=== PATIENT | female | born 1945 | race Hispanic/Latino ===

== ENCOUNTER 2018-05-25 17:44 | Inpatient (IN) | payer MEDICARE ==
[~2018-05-25] VITALS: Ht 170.2 cm; Wt 115.9 kg
[~2018-05-25 17:44] MED LIST: AEC81 PO; ATOR10TA69 PO; BENZ-51 PO; CHOL100040 PO; DULO30CA51 PO; FAMO20TA8 PO; FURO20TA6 PO; GLIP5TAB11 PO; INSU100I24 SQ; INSU100V3 IJ; LINA5TAB PO; POTA10CA44 PO; PREG75 PO; RIVA20TA PO
[2018-05-25 18:16] LABS: MEAN CORPUSCULAR VOLUME 77.5 fL (79-99); RED CELL DISTRIBUTION WIDTH 18.9 % (11.0-15.5)
[2018-05-25 18:24] LABS: CREATININE 2.2 mg/dL (0.5-1.5); POTASSIUM 4.2 mmol/L (3.5-5.1)
[2018-05-25 18:44] LABS: BILIRUBIN,TOTAL 0.5 mg/dL (0.2-1.0); TOTAL PROTEIN, SERUM 7.5 g/dL (6.0-8.3)
[2018-05-25 18:51] LABS: B-TYPE NATRIURETIC PEPTIDE 3250 pg/mL (0-100)
[2018-05-25] MEDS ORDERED: IPRATROPIUM/ALBUTEROL SULFATE 3 ML SOLUTION IH PRN (19:15)
[2018-05-25] MEDS ORDERED: POTASSIUM CHLORIDE 20MEQ/100ML 100 ML IV PRN (19:15)
[2018-05-25] MEDS ORDERED: DEXTROSE 50%-WATER 50 ML DISP.SYRIN IV PRN (19:15)
[2018-05-25] MEDS ORDERED: ACETAMINOPHEN 325 MG TAB PO PRN ×2 (19:15)
[2018-05-25] MEDS ORDERED: ONDANSETRON HCL 4 MG/2 ML VIAL IVP PRN (19:15)
[2018-05-25] MEDS ORDERED: DiphenhydrAMINE HCL 50 MG/ML VIAL IVP PRN (19:15)
[2018-05-25] MEDS ORDERED: DIPHENHYDRAMINE HCL 25 MG CAPSULE PO PRN (19:15)
[2018-05-25] MEDS ORDERED: CLONIDINE HCL 0.1 MG TABLET PO PRN (19:15)
[2018-05-25] MEDS ORDERED: POTASSIUM CHLORIDE 10% ELIXIR 20 MEQ/15 ML UDCUP PO PRN (19:15)
[2018-05-25] MEDS ORDERED: MAG HYDROX/AL HYDROX/SIMETH ES 30 ML SUSP UDCUP PO PRN (19:15)
[2018-05-25] MEDS ORDERED: GUAIFENESIN SUGAR-FREE 100 MG/5 ML UDCUP PO PRN (19:15)
[2018-05-25] MEDS ORDERED: VANCOMYCIN PROTOCOL PER PHARMACY IV SCH (19:15)
[2018-05-25] MEDS ORDERED: LIDOCAINE HCL-MPF 1% 2ML VIAL IJ PRN (19:15)
[2018-05-25] MEDS ORDERED: SODIUM CHLORIDE 0.9% 10 ML VIAL IVP SCH (19:15)
[2018-05-25] MEDS ORDERED: LACTULOSE 20 GM/30 ML UDCUP PO PRN (19:15)
[2018-05-25] MEDS ORDERED: NITROGLYCERIN 0.4 MG SL TAB SL PRN (19:15)
[2018-05-25] MEDS ORDERED: GLUCAGON 1MG KIT 1 MG ML IM PRN (19:15)
[2018-05-25 19:20] LABS: BASOPHILS % (AUTO) 0.6 % (0.0-5.0); EOSINOPHILS % (AUTO) 0.5 % (0.0-8.0); HEMATOCRIT 31.9 % (36-48); LYMPHOCYTES % (AUTO) 30.6 % (21.0-51.0); MEAN CORPUSCULAR HEMOGLOBIN 23.7 pg (27.0-33.0); MEAN CORPUSCULAR HGB CONC 30.6 g/dL (32.0-36.0); NEUTROPHILS % (AUTO) 60.3 % (40.0-77.0); NUCLEATED RED BLOOD CELLS 0.2 % (0.0-0.19); PLATELET COUNT (AUTO) 122 K/uL (130-400); RED BLOOD CELL COUNT(AUTO) 4.12 MIL/uL (4.00-5.50); WHITE BLOOD COUNT (AUTO) 6.8 K/uL (4.8-10.8)
[2018-05-25 19:39] LABS: PLATELET MORPHOLOGY LARGE PLTS PRESENT
[2018-05-25] MEDS: FUROSEMIDE 10 MG/ML 4ML VIAL IVP SCH (20:00)
[2018-05-25] MEDS ORDERED: ZOSYN 3.375GM+NS 50ML 50 ML IV ONE (20:13)
[2018-05-25] MEDS ORDERED: FUROSEMIDE 10 MG/ML 4ML VIAL ONE (20:13)
[2018-05-25] MEDS: ZOSYN 3.375GM+NS 50ML 50 ML IV SCH (21:00)
[2018-05-25] MEDS: INSULIN R PO SSI SQ SCH (21:00)
[2018-05-25] MEDS ORDERED: ACETAMINOPHEN 325 MG TAB ONE (21:53)
[2018-05-25] MEDS ORDERED: SODIUM CHLORIDE 3% FOR INHALATION 4 ML/AMP VIAL.NEB IH ONE (22:22)
[2018-05-25] MEDS ORDERED: IPRATROPIUM/ALBUTEROL SULFATE 3 ML SOLUTION IH ONE (22:37)
[2018-05-25] MEDS ORDERED: VANCOMYCIN 1GM+NS 250ML 250 ML IV ONE (23:33)
[2018-05-26] MEDS: FUROSEMIDE 10 MG/ML 4ML VIAL IVP SCH ×3 (04:00→22:34)
[2018-05-26] MEDS ORDERED: FUROSEMIDE 10 MG/ML 4ML VIAL ONE ×2 (04:23→14:49)
[2018-05-26] MEDS: ZOSYN 3.375GM+NS 50ML 50 ML IV SCH ×3 (05:00→22:34)
[2018-05-26] MEDS: INSULIN R PO SSI SQ SCH ×4 (07:30→21:00)
[2018-05-26] MEDS ORDERED: ZOSYN 3.375GM+NS 50ML 50 ML IV ONE (08:40)
[2018-05-26] MEDS: FAMOTIDINE 20MG TAB 20 MG TAB PO SCH (09:00)
[2018-05-26] MEDS ORDERED: DOCUSATE SODIUM 100 MG CAP PO PRN (09:15)
--- NOTE | 2018-05-26 11:09 | NUR ---
VERY HARD OF HEARING. USES BILATERAL HEARING AIDES BUT LOST BOTH AT [facility] WHEN WAS THERE Addendum: 05/26/18 at 1113 by MARTHA GALLEGO RN RN Amended: Links added.
--- NOTE | 2018-05-26 11:18 | NUR ---
WITH SISTER Addendum: 05/26/18 at 1122 by MARTHA GALLEGO RN RN Amended: Links added.
[2018-05-26] MEDS ORDERED: CHOL100018 PO (11:29)
[2018-05-26] MEDS ORDERED: NITR0.4T50 SL (11:29)
[2018-05-26] MEDS ORDERED: LINA5TAB PO (11:29)
[2018-05-26] MEDS ORDERED: CLON0.1T PO (11:29)
[2018-05-26] MEDS ORDERED: INSU100V37 SQ (11:29)
[2018-05-26] MEDS ORDERED: RIVA20TA PO (11:29)
[2018-05-26] MEDS ORDERED: SODIUM CHLORIDE 3% FOR INHALATION 4 ML/AMP VIAL.NEB IH ONE (12:24)
--- NOTE | 2018-05-26 12:30 | NUR ---
[facility] met with pt and sister Hue Clark [phone]. Pt lives with sister, has provider 30hrs thru [facility], 10hrs respite thru [place], Pt has w/[facility], O2 thru [facility]. Pt also has HH thru [facility]. Plan is to dc home with sister and current services. CM to follow and assist as needed Addendum: 05/26/18 at 1233 by DELIA WYLIE Amended: Links added.
[2018-05-26 12:37] LABS: APPEARANCE,URINE Clear (CLEAR); BILIRUBIN,URINE Negative (NEGATIVE); COLOR,URINE Yellow (YELLOW); GLUCOSE, URINE (UA) Negative (NEGATIVE); KETONES,URINE Negative (NEGATIVE); LEUKOCYTE ESTERASE ,URINE Moderate (NEGATIVE); NITRATE,URINE Negative (NEGATIVE); OCCULT BLOOD,URINE Moderate (NEGATIVE); PROTEIN,URINE POS 1+ mg/dL (NEGATIVE); UROBILINOGEN,URINE 0.2 mg/dL (0.2-1.0)
--- NOTE | 2018-05-26 12:45 | NUR ---
[facility] Letter Letter given to patient. CD
[2018-05-26 12:53] LABS: BACTERIA,URINE Rare /HPF (None Seen); SQUAMOUS EPITHELIAL CELL,UR Rare /HPF (0-2)
[2018-05-26 12:54] LABS: TRANSITIONAL EPI CELLS,URINE Rare /HPF (None Seen); YEAST,URINE BUDDING Few /HPF (None Seen)
[2018-05-26] MEDS: PHARMACY COMMUNICATION MISC SCH ×4 (15:00→22:45)
[2018-05-26 16:00] VITALS: BP 138/74
[2018-05-26 20:00] VITALS: BP 154/75
[2018-05-26 22:19] VITALS: BP 154/75
[2018-05-27] VITALS (7 sets, daily range): BP systolic 106–134; BP diastolic 51–75
[2018-05-27] MEDS: PHARMACY COMMUNICATION MISC SCH ×6 (01:00→23:00)
[2018-05-27] MEDS: FUROSEMIDE 10 MG/ML 4ML VIAL IVP SCH ×3 (05:02→21:41)
[2018-05-27] MEDS: ZOSYN 3.375GM+NS 50ML 50 ML IV SCH ×3 (05:02→21:37)
[2018-05-27 05:22] LABS: HEMATOCRIT 31.6 % (36-48); MEAN CORPUSCULAR HEMOGLOBIN 23.9 pg (27.0-33.0); MEAN CORPUSCULAR HGB CONC 30.3 g/dL (32.0-36.0); MEAN CORPUSCULAR VOLUME 78.7 fL (79-99); NUCLEATED RED BLOOD CELLS 0.2 % (0.0-0.19); PLATELET COUNT (AUTO) 112 K/uL (130-400); RED BLOOD CELL COUNT(AUTO) 4.01 MIL/uL (4.00-5.50); WHITE BLOOD COUNT (AUTO) 6.9 K/uL (4.8-10.8)
[2018-05-27 05:39] LABS: POTASSIUM 3.8 mmol/L (3.5-5.1)
[2018-05-27] MEDS: INSULIN R PO SSI SQ SCH ×4 (07:30→21:43)
[2018-05-27] MEDS: FAMOTIDINE 20MG TAB 20 MG TAB PO SCH (10:31)
[2018-05-27] MEDS: VANCOMYCIN 500MG+NS 100ML 100 ML IV SCH ×2 (10:35→21:36)
[2018-05-27] MEDS: POTASSIUM CHLORIDE 20 MEQ ERTAB PO PRN ×2 (16:03→18:19)
--- NOTE | 2018-05-27 16:14 | NUR ---
[facility] consult Patient assessed as ordered. Patient states she had a boil on right buttock which was drained approximately one week ago. Site is nearly healed. No other open areas identified. [facility] recommendation submitted. Addendum: 05/27/18 at 1616 by REAGAN ALMENDAREZ RN/ Amended: Links added.
[2018-05-27] MEDS ORDERED: VANCOMYCIN 1GM+NS 250ML 250 ML IV ONE (20:00)
[2018-05-28] MEDS: ZOLPIDEM TARTRATE 5 MG TAB PO PRN ×2 (00:34→22:08)
[2018-05-28 03:34] VITALS: BP 116/49
[2018-05-28] MEDS: FUROSEMIDE 10 MG/ML 4ML VIAL IVP SCH ×3 (05:20→21:05)
[2018-05-28] MEDS: ZOSYN 3.375GM+NS 50ML 50 ML IV SCH ×3 (05:21→23:25)
[2018-05-28] MEDS: INSULIN R PO SSI SQ SCH ×4 (05:33→21:04)
[2018-05-28 05:35] LABS: HEMATOCRIT 31.9 % (36-48); MEAN CORPUSCULAR HEMOGLOBIN 23.5 pg (27.0-33.0); MEAN CORPUSCULAR VOLUME 78.2 fL (79-99); NUCLEATED RED BLOOD CELLS 0.1 % (0.0-0.19); PLATELET COUNT (AUTO) 111 K/uL (130-400); RED BLOOD CELL COUNT(AUTO) 4.08 MIL/uL (4.00-5.50); RED CELL DISTRIBUTION WIDTH 19.1 % (11.0-15.5)
[2018-05-28 05:47] LABS: ALBUMIN 2.8 g/dL (3.5-5.0); BILIRUBIN,TOTAL 0.6 mg/dL (0.2-1.0); CREATININE 2.2 mg/dL (0.5-1.5); POTASSIUM 3.5 mmol/L (3.5-5.1); TOTAL PROTEIN, SERUM 6.9 g/dL (6.0-8.3)
[2018-05-28] MEDS: VANCOMYCIN 500MG+NS 100ML 100 ML IV SCH ×2 (06:49→21:05)
[2018-05-28 08:00] VITALS: BP 119/77
[2018-05-28] MEDS: FAMOTIDINE 20MG TAB 20 MG TAB PO SCH ×2 (08:39→09:56)
[2018-05-28 11:00] VITALS: BP 118/67
--- NOTE | 2018-05-28 12:35 | NUR ---
DYSPHAGIA EVAL COMPLETED. -S/S OF ASPIRATION. RECOMMEND MECHANICAL SOFT/CHOPPED, THIN LIQUIDS; PILLS WHOLE WITH LIQUIDS. PATIENT INFORMATION: Pt IS A 72 YEAR OLD FEMALE REFERRED FOR A BEDSIDE DYSPHAGIA EVALUATION SECONDARY TO DIFFICULTY SWALLOWING. Pt'S SISTER AT BEDSIDE AT THE TIME OF THE EVALUATION. Pt REPORTS THAT SHE HAS A GLOBUS SENSATIONS WHEN SHE SWALLOWS. Pt CURRENTLY ADMITTED SECONDARY TO SHORTNESS OF BREATH. PT WAS RECENTLY IN A LOCAL SNF SECONDARY TO PNEUMONIA AND CHF. Pt HAS A PAST MEDICAL HISTORY SIGNIFICANT FOR CHF, CHRONIC KIDNEY DISEASE, HYPERTENSION, HYPERLIPIDEMIA, DM, DEEP VEIN THROMBOSIS, COLOSTOMY PLACEMENT, CABG, HYSTERECTOMY. EVALUATION: Pt PRESENTS WITH MILD OROPHARYNGEAL DYSPHAGIA CAUSED BY DECREASED ORAL MOTOR COORDINATION AND STRENGTH, AND MILD PHARYNGEAL RESPONSE DELAY EVIDENCED BY ANTERIOR SPILLAGE, DECREASED ROTARY MOTION DURING MASTICATION, WITH NO OVERT S/S OF ASPIRATION OF SUPER COUGH OR THROAT CLEAR. RECOMMENDATIONS: 1. MECHANICAL SOFT/CHOPPED, THIN LIQUIDS; PILLS WHOLE WITH LIQUIDS 2. COMPENSATORY STRATEGIES: *SEATED AT 90 *SLOW RATE *ADD GRAVY TO MEATS G-CODES SWALLOWING: [id number] Addendum: 05/28/18 at 1245 by DANIELA YUAN [facility] Amended: Links added.
[2018-05-28 16:00] VITALS: BP 123/71
--- NOTE | 2018-05-28 16:28 | NUR ---
CM Note: [place] pending acceptance CM met with pt discussed MD recommendations, pt and fam agreeable, MARYELLEN signed for [facility]. As per family does not want patient to go to [facility], only wants [place], requested for private room if possible as pt is deaf and have a tendency to have TV on loud. Informed pt and family will inform [facility] frandy of request but cannot guarantee, verbalized understanding. Faxed clinicals and pasrr. Spoke to Isabella Morris, will come eval pt, made aware of request for private room, will try to accommodate pt and fam request. Pt pending acceptance. Primary nurse aware. CM to cont to follow up.
[2018-05-28 19:15] VITALS: BP 114/68
[2018-05-28 23:17] VITALS: BP 108/52
[2018-05-29 03:46] VITALS: BP 101/43
[2018-05-29 04:40] LABS: MEAN CORPUSCULAR HEMOGLOBIN 23.8 pg (27.0-33.0); MEAN CORPUSCULAR HGB CONC 30.7 g/dL (32.0-36.0); MEAN CORPUSCULAR VOLUME 77.5 fL (79-99); NUCLEATED RED BLOOD CELLS 0.1 % (0.0-0.19); PLATELET COUNT (AUTO) 91 K/uL (130-400); RED CELL DISTRIBUTION WIDTH 19.3 % (11.0-15.5); WHITE BLOOD COUNT (AUTO) 7.1 K/uL (4.8-10.8)
[2018-05-29 04:52] LABS: CREATININE 2.1 mg/dL (0.5-1.5); POTASSIUM 3.6 mmol/L (3.5-5.1)
[2018-05-29] MEDS: ZOSYN 3.375GM+NS 50ML 50 ML IV SCH ×2 (06:15→18:25)
[2018-05-29] MEDS: VANCOMYCIN 500MG+NS 100ML 100 ML IV SCH ×3 (06:15→18:25)
[2018-05-29] MEDS: FUROSEMIDE 10 MG/ML 4ML VIAL IVP SCH ×2 (06:15→17:15)
[2018-05-29] MEDS: INSULIN R PO SSI SQ SCH ×3 (06:16→17:23)
[2018-05-29 07:30] VITALS: BP 101/47
--- NOTE | 2018-05-29 10:27 | NUR ---
CM Note: [facility] acceptance Spoke to Annabel jara/[facility], pt has acceptance. EMS arranged and faxed for today, primary nurse to call [facility] once pt ready to dc. Primary nurse aware. CM to cont to follow up.
[2018-05-29 11:00] VITALS: BP 131/97
[2018-05-29] MEDS: FAMOTIDINE 20MG TAB 20 MG TAB PO SCH (11:00)
[2018-05-29 16:00] VITALS: BP 127/64
[2018-05-29] MEDS ORDERED: ATORVASTATIN CALCIUM 10 MG TABLET PO SCH (21:00)
[2018-05-29] MEDS ORDERED: PREGABALIN 75 MG CAPSULE PO SCH (21:00)
--- NOTE | 2018-05-29 21:15 | NUR ---
DISCHARGE NOTE: Pt fully awake and responsive. Discharge instructions was given by the day shift nurse. D/C with Colostomy bag to [facility], with Guido Cath 16 samoan and IV site to left forearm # 22 gauge -patent and intact. Telemetry removed. Pt. discharged per stretcher via EMS to [facility] facility. Distress / discomfort not noted.
[2018-05-30] MEDS ORDERED: RIVAROXABAN 20 MG TABLET PO SCH (09:00)
[2018-05-30] MEDS ORDERED: DULOXETINE HCL 30 MG CAP PO SCH (09:00)
[2018-05-30] MEDS ORDERED: HOME MEDICATION 1 EACH SQ SCH (09:00)
[2018-05-30] MEDS ORDERED: ASPIRIN 81 MG EC TAB PO SCH (09:00)
[2018-05-30] MEDS ORDERED: POTASSIUM CHLORIDE 10 MEQ/TAB.SA PO SCH (09:00)
== END 2018-05-29 21:15 | DRG 291 ==
LOC: EDH 17:44 → EDHIP 21:10 → 4CH 05-26 14:06
PROVIDERS: ADMIT Family Medicine; ATTEND Family Medicine
DX: I13.0 Hypertensive heart and chronic kidney disease with heart failure and stage 1 through stage 4 chronic kidney disease, or unspecified chronic kidney disease (principal); J18.9 Pneumonia, unspecified organism; I50.9 Heart failure, unspecified; N18.9 Chronic kidney disease, unspecified; E11.22 Type 2 diabetes mellitus with diabetic chronic kidney disease; I25.10 Atherosclerotic heart disease of native coronary artery without angina pectoris; E78.5 Hyperlipidemia, unspecified; Z86.718 Personal history of other venous thrombosis and embolism; Z90.710 Acquired absence of both cervix and uterus; Z93.3 Colostomy status; Z95.1 Presence of aortocoronary bypass graft
CPT/HCPCS: 36415; 71045; 80048; 80053; 80202; 81001; 82948; 83880; 85025; 85027; 87040; 87071; 87205; 92610; 94640; 94664; 97039; A5073; G0378; J1815; J1940; J2543; J3370

== ENCOUNTER 2018-05-30 20:08 | Inpatient (IN) | payer MEDICARE ==
[~2018-05-30] VITALS: Ht 170.2 cm; Wt 108.0 kg
[~2018-05-30 20:08] MED LIST changes: -BENZ-51 PO; +CHOL100018 PO; -CHOL100040 PO; +CLON0.1T PO; -INSU100I24 SQ; +INSU100V37 SQ; +NITR0.4T50 SL
[2018-05-30 21:04] LABS: BILIRUBIN,URINE SMALL (NEGATIVE); COLOR,URINE YELLOW (YELLOW); GLUCOSE, URINE (UA) NEGATIVE (NEGATIVE); KETONES,URINE 5 mg/dL (NEGATIVE); LEUKOCYTE ESTERASE ,URINE TRACE (NEGATIVE); NITRATE,URINE NEGATIVE (NEGATIVE); OCCULT BLOOD,URINE MODERATE (NEGATIVE); PH,URINE 5.5 (5.0-8.0); PROTEIN,URINE 100 mg/dL (NEGATIVE)
[2018-05-30 21:05] LABS: APPEARANCE,URINE HAZY (CLEAR)
[2018-05-30 21:06] LABS: BACTERIA,URINE Few /HPF (None Seen); RBC,URINE 0-1 /HPF (0-1); SQUAMOUS EPITHELIAL CELL,UR None Seen /HPF (0-2); WBC,URINE 0-1 /HPF (0-1)
[2018-05-30 21:07] LABS: AMORPHOUS SEDIMENT,UR Few /LPF (None Seen)
[2018-05-30 21:20] LABS: BASOPHILS % (AUTO) 1.2 % (0.0-5.0); EOSINOPHILS % (AUTO) 0.2 % (0.0-8.0); HEMATOCRIT 32.2 % (36-48); LYMPHOCYTES % (AUTO) 4.9 % (21.0-51.0); MEAN CORPUSCULAR HEMOGLOBIN 23.5 pg (27.0-33.0); MEAN CORPUSCULAR HGB CONC 30.2 g/dL (32.0-36.0); MEAN CORPUSCULAR VOLUME 77.8 fL (79-99); NEUTROPHILS % (AUTO) 81.7 % (40.0-77.0); NUCLEATED RED BLOOD CELLS 1.1 % (0.0-0.19); PLATELET COUNT (AUTO) 108 K/uL (130-400); RED BLOOD CELL COUNT(AUTO) 4.14 MIL/uL (4.00-5.50); RED CELL DISTRIBUTION WIDTH 19.6 % (11.0-15.5); WHITE BLOOD COUNT (AUTO) 7.6 K/uL (4.8-10.8)
[2018-05-30 21:29] LABS: CARBON DIOXIDE 40 mmol/L (21-32); CHLORIDE 102 mmol/L (101-111); CREATININE 2.5 mg/dL (0.5-1.5); GLOMERULAR FILTR. RATE CALC 20 mL/min (>60); GLUCOSE,RANDOM 205 mg/dL (70-105); POTASSIUM 4.1 mmol/L (3.5-5.1); SODIUM SERUM 146 mmol/L (136-145); UREA NITROGEN, BLOOD 70 mg/dL (7-18)
[2018-05-30 21:30] LABS: INR 1.05 (0.85-1.15); PARTIAL THROMBOPLASTIN TIME 29.8 SEC (26.3-35.5)
[2018-05-30 21:39] LABS: ALANINE AMINOTRANSFERASE 22 U/L (12-78); ASPARTATE AMINOTRANSFERASE 26 U/L (10-37); BILIRUBIN,TOTAL 0.7 mg/dL (0.2-1.0); MYOGLOBIN 90 ng/mL (10-92); TOTAL PROTEIN, SERUM 7.4 g/dL (6.0-8.3); TROPONIN I < 0.04 ng/mL (0.00-0.06)
[2018-05-30] MEDS ORDERED: IPRATROPIUM/ALBUTEROL SULFATE 3 ML SOLUTION IH ONE (21:55)
[2018-05-30 21:56] LABS: CREATINE KINASE, TOTAL 18 U/L (21-232)
[2018-05-30 22:27] LABS: ABG BASE EXCESS 6.6 mmol/L (-2.0-3.0); ABG HCO3 36.6 mmol/L (21.0-28.0); ABG OXYGEN SATURATION 96.9 % (95.0-99.0); ABG PCO2 79 mmHg (32-45)
[2018-05-30] MEDS ORDERED: FUROSEMIDE 10 MG/ML 4ML VIAL ONE (23:20)
[2018-05-30] MEDS ORDERED: FUROSEMIDE 10 MG/ML 2ML VIAL ONE (23:20)
[2018-05-30 23:51] LABS: ABG BASE EXCESS 7.6 mmol/L (-2.0-3.0); ABG HCO3 36.3 mmol/L (21.0-28.0); ABG OXYGEN SATURATION 91.2 % (95.0-99.0); ABG PCO2 70 mmHg (32-45)
[2018-05-31] VITALS (24 sets, daily range): BP systolic 103–156; BP diastolic 49–107
[2018-05-31] MEDS ORDERED: GUAIFENESIN SUGAR-FREE 100 MG/5 ML UDCUP PO PRN (00:30)
[2018-05-31] MEDS ORDERED: DIPHENHYDRAMINE HCL 25 MG CAPSULE PO PRN (00:30)
[2018-05-31] MEDS ORDERED: ONDANSETRON HCL 4 MG/2 ML VIAL IVP PRN (00:30)
[2018-05-31] MEDS ORDERED: NITROGLYCERIN 0.4 MG SL TAB SL PRN (00:30)
[2018-05-31] MEDS ORDERED: DEXTROSE 50%-WATER 50 ML DISP.SYRIN IV PRN (00:30)
[2018-05-31] MEDS ORDERED: GUAIFENESIN-DM 200/20 MG 10 ML PO PRN (00:30)
[2018-05-31] MEDS ORDERED: ACETAMINOPHEN 325 MG TAB PO PRN (00:30)
[2018-05-31] MEDS ORDERED: GLUCAGON 1MG KIT 1 MG ML IM PRN (00:30)
[2018-05-31] MEDS ORDERED: CLONIDINE HCL 0.1 MG TABLET PO PRN (00:30)
[2018-05-31] MEDS ORDERED: ZOLPIDEM TARTRATE 5 MG TAB PO PRN (00:30)
[2018-05-31] MEDS ORDERED: MAG HYDROX/AL HYDROX/SIMETH ES 30 ML SUSP UDCUP PO PRN (00:30)
[2018-05-31] MEDS ORDERED: LACTULOSE 20 GM/30 ML UDCUP PO PRN (00:30)
[2018-05-31] MEDS ORDERED: SODIUM CHLORIDE 0.9% 10 ML VIAL IVP SCH (00:30)
[2018-05-31] MEDS ORDERED: VANCOMYCIN PROTOCOL PER PHARMACY IV SCH (00:30)
[2018-05-31] MEDS ORDERED: DiphenhydrAMINE HCL 50 MG/ML VIAL IVP PRN (00:30)
[2018-05-31] MEDS ORDERED: ZOSYN 3.375GM+NS 50ML 50 ML IV ONE (00:41)
[2018-05-31] MEDS ORDERED: VANCOMYCIN 1GM+NS 250ML 250 ML IV ONE (00:41)
[2018-05-31] MEDS ORDERED: ZOSYN 3.375GM+NS 50ML 50 ML IV SCH (01:00)
[2018-05-31] MEDS ORDERED: FAMO20TA8 PO (02:21)
[2018-05-31] MEDS ORDERED: VANC500V5 IV (02:21)
[2018-05-31] MEDS ORDERED: PIPE3.376 IV (02:21)
[2018-05-31] MEDS ORDERED: FURO10VI4 IV (02:21)
[2018-05-31 03:47] LABS: HEMATOCRIT 30.6 % (36-48); MEAN CORPUSCULAR HEMOGLOBIN 23.5 pg (27.0-33.0); MEAN CORPUSCULAR HGB CONC 30.2 g/dL (32.0-36.0); PLATELET COUNT (AUTO) 80 K/uL (130-400); RED BLOOD CELL COUNT(AUTO) 3.93 MIL/uL (4.00-5.50); RED CELL DISTRIBUTION WIDTH 19.5 % (11.0-15.5); WHITE BLOOD COUNT (AUTO) 6.3 K/uL (4.8-10.8)
[2018-05-31 04:05] LABS: ALBUMIN 2.7 g/dL (3.5-5.0); BILIRUBIN,TOTAL 0.8 mg/dL (0.2-1.0); CREATININE 2.5 mg/dL (0.5-1.5); POTASSIUM 4.1 mmol/L (3.5-5.1); TOTAL PROTEIN, SERUM 6.6 g/dL (6.0-8.3)
[2018-05-31] MEDS: FUROSEMIDE 10 MG/ML 4ML VIAL IVP SCH ×3 (05:05→22:13)
[2018-05-31] MEDS: INSULIN R PO SS1 SQ SCH ×4 (06:05→21:00)
[2018-05-31] MEDS: IPRATROPIUM/ALBUTEROL SULFATE 3 ML SOLUTION IH SCH ×5 (06:26→23:08)
[2018-05-31] MEDS: ZOSYN 3.375GM+NS 50ML 50 ML IV SCH ×2 (09:48→20:49)
[2018-05-31] MEDS ORDERED: POTASSIUM CHLORIDE 10% ELIXIR 20 MEQ/15 ML UDCUP PO PRN (12:45)
[2018-05-31] MEDS ORDERED: POTASSIUM CHLORIDE 20 MEQ ERTAB PO PRN (12:45)
[2018-05-31] MEDS ORDERED: POTASSIUM CHLORIDE 20MEQ/100ML 100 ML IV PRN (12:45)
[2018-05-31] MEDS ORDERED: LIDOCAINE HCL-MPF 1% 2ML VIAL IVP PRN (12:45)
--- NOTE | 2018-05-31 16:00 | NUR ---
cm note pt currently on bipap machine, no familiy at bedside. unable to interview, will followoup when family available.
[2018-05-31] MEDS ORDERED: SODIUM CHLORIDE 0.9% 250 ML IV ONE (18:07)
[2018-05-31 18:20] LABS: APPEARANCE BODY FLUID CLOUDY (CLEAR); COLOR,BODY FLUID ORANGE (LT YELLOW); SPECIMENTYPE,BODY FLUID PLEURAL; TOTAL VOLUME,BODY FLUID 50 mL
[2018-05-31 18:21] LABS: BODY FLUID RBC 3050 /cu. mm.; BODY FLUID WBC 84 /cu. mm.
[2018-05-31 18:59] LABS: BF LYMPHOCYTE 29 %; BF MONOCYTE 5 %; BF OTHER CELLS 26
--- NOTE | 2018-05-31 19:43 | NUR ---
ASSESSMENT: REPORT RECEIVED FROM MEE BROWN. PATIENT RESTING IN BED WITH SISTERS PRESENT. PATIENT AAOX 1, WEAK X 4, TYRA 3 MM EQUAL. LUNGS CLEAR , BIPAP 18/4 40 %, ABDOMEN SOFT , COLOSTOMY INTACT, PEDAL PULSES WEAK , PEDAL PULSES WEAK, SEDS ON, ROSENBERG PATENT TO BSD. ++ 4 GENERALIZED EDEMA, CALL KAN IN REACH.
[2018-05-31] MEDS: CARVEDILOL 3.125 MG TABLET PO SCH (20:48)
[2018-05-31] MEDS: ATORVASTATIN CALCIUM 40 MG TABLET PO SCH (20:48)
[2018-05-31] MEDS: VANCOMYCIN 1GM+NS 250ML 250 ML IV SCH (20:49)
[2018-05-31] MEDS: ACETAMINOPHEN 325 MG TAB PO PRN (20:53)
--- NOTE | 2018-05-31 21:24 | NUR ---
RENAL AND BLE US IN PROGRESS AT BEDSIDE
--- NOTE | 2018-05-31 21:41 | NUR ---
BILATERAL LE US COMPLETED. RENAL US PENDING.
--- NOTE | 2018-05-31 23:07 | NUR ---
RENAL US COMPLETED AT BEDSIDE. PATIENT REPOSITIONED FOR COMFORT. PATIENT CALM , SISTER AT BEDSIDE.
[2018-06-01] VITALS (24 sets, daily range): BP systolic 98–136; BP diastolic 38–77
[2018-06-01] MEDS: IPRATROPIUM/ALBUTEROL SULFATE 3 ML SOLUTION IH SCH ×6 (01:47→22:29)
[2018-06-01 03:37] LABS: HEMATOCRIT 28.3 % (36-48); MEAN CORPUSCULAR HEMOGLOBIN 23.7 pg (27.0-33.0); MEAN CORPUSCULAR VOLUME 76.5 fL (79-99); NUCLEATED RED BLOOD CELLS 0.5 % (0.0-0.19); PLATELET COUNT (AUTO) 88 K/uL (130-400); RED CELL DISTRIBUTION WIDTH 19.6 % (11.0-15.5); WHITE BLOOD COUNT (AUTO) 6.9 K/uL (4.8-10.8)
[2018-06-01 03:53] LABS: LYMPHOCYTES % (MANUAL) 12 % (22-44); MAN.DIFF COMMENT-IMPRESSION MANUAL DIFFERENTIAL; MONOCYTES % (MANUAL) 2 % (2-9); PLATELET MORPHOLOGY COMMENT DECREASED; SEGMENTED NEUTROPHILS % 86 % (40-70)
[2018-06-01 03:57] LABS: CREATININE 2.5 mg/dL (0.5-1.5); PHOSPHORUS 4.1 mg/dL (2.5-4.9); THYROID STIMULATING HORMONE 1.77 uIU/mL (0.36-3.74); URIC ACID 9.1 mg/dL (2.6-7.2)
[2018-06-01 04:09] LABS: % IRON SATURATION 5.4 % (22-44)
[2018-06-01] MEDS: FUROSEMIDE 10 MG/ML 4ML VIAL IVP SCH (06:32)
[2018-06-01] MEDS: INSULIN R PO SS1 SQ SCH ×4 (06:35→21:00)
[2018-06-01 07:54] LABS: ABG BASE EXCESS 11.9 mmol/L (-2.0-3.0); ABG HCO3 39.6 mmol/L (21.0-28.0); ABG OXYGEN SATURATION 99.1 % (95.0-99.0); ABG PCO2 64 mmHg (32-45)
[2018-06-01] MEDS: FUROSEMIDE 10 MG/ML 4ML VIAL IV SCH ×2 (08:50→16:20)
[2018-06-01] MEDS: ZOSYN 3.375GM+NS 50ML 50 ML IV SCH ×2 (08:51→21:29)
[2018-06-01] MEDS: CARVEDILOL 3.125 MG TABLET PO SCH ×2 (08:51→21:30)
[2018-06-01] MEDS: ASPIRIN 81MG TAB.CHEW PO SCH (08:51)
[2018-06-01] MEDS: ISOSORBIDE MONO 30MG TAB SR PO SCH (08:51)
[2018-06-01] MEDS: METOLAZONE 2.5 MG TABLET PO SCH ×2 (08:51→21:30)
[2018-06-01] MEDS: THIAMINE HCL 100 MG/ML 2ML VIAL IVP SCH (08:51)
[2018-06-01] MEDS: ENOXAPARIN SODIUM 30 MG/0.3 ML SQ SCH (08:52)
[2018-06-01] MEDS: HYDRALAZINE HCL 10 MG TABLET PO SCH ×3 (09:00→21:29)
[2018-06-01] MEDS ORDERED: FUROSEMIDE 10 MG/ML 4ML VIAL IVP SCH (09:00)
--- NOTE | 2018-06-01 13:53 | NUR ---
DC PLAN VISITED WITH PATIENT. PATIENT LIVES WITH SISTER. PROVIDER 30 HRS THROUGH [facility], 10 HOURS RESPITE THROUGH , [facility], [facility], HOME. PATIENT HAD BEEN TRANSFERRED TO [facility] HAD SOB BROUGHT BACK. DAUGHTER DID NOT WANT TO SIGN MARYELLEN YET SAID WANTED TO WAIT FOR OTHER SISTER LENKA MADDEN. Addendum: 06/01/18 at 1355 by JAMES TAMEZ RN CM Amended: Links added.
[2018-06-01] MEDS: VANCOMYCIN 1GM+NS 250ML 250 ML IV SCH (20:21)
[2018-06-01] MEDS: ATORVASTATIN CALCIUM 40 MG TABLET PO SCH (21:30)
[2018-06-02] VITALS (23 sets, daily range): BP systolic 104–142; BP diastolic 37–86
[2018-06-02] MEDS: FUROSEMIDE 10 MG/ML 4ML VIAL IV SCH ×3 (00:06→16:18)
[2018-06-02] MEDS: IPRATROPIUM/ALBUTEROL SULFATE 3 ML SOLUTION IH SCH ×6 (02:24→21:32)
[2018-06-02 04:22] LABS: CREATININE 2.7 mg/dL (0.5-1.5); MAGNESIUM 2.1 mg/dL (1.80-2.40); PHOSPHORUS 4.6 mg/dL (2.5-4.9); POTASSIUM 3.6 mmol/L (3.5-5.1)
[2018-06-02 04:33] LABS: MEAN CORPUSCULAR HEMOGLOBIN 23.5 pg (27.0-33.0); MEAN CORPUSCULAR HGB CONC 30.9 g/dL (32.0-36.0); NUCLEATED RED BLOOD CELLS 0.2 % (0.0-0.19); PLATELET COUNT (AUTO) 73 K/uL (130-400); RED BLOOD CELL COUNT(AUTO) 3.69 MIL/uL (4.00-5.50); RED CELL DISTRIBUTION WIDTH 19.4 % (11.0-15.5); WHITE BLOOD COUNT (AUTO) 6.5 K/uL (4.8-10.8)
[2018-06-02] MEDS: INSULIN R PO SS1 SQ SCH ×4 (05:23→21:13)
[2018-06-02 05:29] LABS: ABG BASE EXCESS 9.7 mmol/L (-2.0-3.0); ABG HCO3 36.7 mmol/L (21.0-28.0); ABG OXYGEN SATURATION 96.5 % (95.0-99.0); ABG PCO2 59 mmHg (32-45)
--- NOTE | 2018-06-02 07:30 | NUR ---
DR. WARD IN TO SEE PT. PLAN OF CARE DISCUSSED. NEW ORDERS RECEIVED AND NOTED.
[2018-06-02] MEDS: ZOSYN 3.375GM+NS 50ML 50 ML IV SCH ×2 (08:09→21:15)
[2018-06-02] MEDS: ENOXAPARIN SODIUM 30 MG/0.3 ML SQ SCH (08:09)
[2018-06-02] MEDS: DOBUTAMINE 250MG/D5 250ML 250 ML IV PRN ×2 (08:09→17:47)
[2018-06-02] MEDS: ISOSORBIDE MONO 30MG TAB SR PO SCH (08:10)
[2018-06-02] MEDS: METOLAZONE 2.5 MG TABLET PO SCH ×2 (08:10→21:14)
[2018-06-02] MEDS: ASPIRIN 81MG TAB.CHEW PO SCH (08:10)
[2018-06-02] MEDS: CARVEDILOL 3.125 MG TABLET PO SCH ×2 (08:11→21:15)
[2018-06-02] MEDS: HYDRALAZINE HCL 10 MG TABLET PO SCH ×3 (08:14→21:15)
[2018-06-02] MEDS: THIAMINE HCL 100 MG/ML 2ML VIAL IVP SCH (08:14)
--- NOTE | 2018-06-02 08:30 | NUR ---
DR. DE LUNA IN TO SEE PT. PLAN OF CARE DISCUSSED. PT PLACED ON BIPAP ORDERED. TOLERATING WELL. CONTINUE TO MONITOR PT.
[2018-06-02 10:39] LABS: ABG BASE EXCESS 10.8 mmol/L (-2.0-3.0); ABG HCO3 37.1 mmol/L (21.0-28.0); ABG OXYGEN SATURATION 96.9 % (95.0-99.0); ABG PCO2 55 mmHg (32-45)
[2018-06-02 11:52] LABS: INR 1.11 (0.85-1.15); PROTHROMBIN TIME 11.6 SEC (9.6-11.6)
[2018-06-02] MEDS ORDERED: COMPOUND IV MISC 1 EACH IVSOLN MISC PRN (12:30)
--- NOTE | 2018-06-02 14:40 | NUR ---
Nutrition intervention: Nutrition notification as per protocol. Pt admitted for respiratory failure, currently on CCD 75gm diet, 1000ml fluid restriction with good oral intake. At time of RD visit, pt in PICC line procedure. RD spoke to pt's Nurse. Nurse Johanna reports no nutritional concerns at the moment as pt with good oral intake. Recommendations: Modify current diet therapy with renal non dialysis diet for appropriate diet placement. Consult RD as nutrition concerns arise. Addendum: 06/02/18 at [address] Amended: Links added.
--- NOTE | 2018-06-02 17:50 | NUR ---
BM: GOOD APPETITE BUT ONLY AIR IN COLOSTOMY BAG.
--- NOTE | 2018-06-02 20:00 | NUR ---
ASSESSMENT PT RESTING QUIETLY AND COMFORTABLY IN BED WATCHING T.V. CURRENTLY DENIES ANY PAIN, C/P, OR S.O.B. DOBUTAMINE INFUSING WITHOUT DIFFICULTY TO RIGHT UPPER ARM 6FR PICC. NSR WITH PVC'S, O2 3L NC IN PLACE. LLQ COLOSTOMY IN PLACE. GENERALIZED EDEMA NOTED. ROSENBERG CATHETER TO BEDSIDE DRAINAGE. CALLBELL WITHIN REACH AND REVIEWED WITH PT. MICAELA BOARD UP-DATED. ASSESSMENT COMPLETED, SEE FLOW SHEET
[2018-06-02] MEDS: ATORVASTATIN CALCIUM 40 MG TABLET PO SCH (21:15)
[2018-06-03] VITALS (22 sets, daily range): BP systolic 91–143; BP diastolic 31–80
--- NOTE | 2018-06-03 00:15 | NUR ---
ASSESSMENT PT RESTING QUIETLY AND COMFORTABLY IN BED. CURRENTLY DENIES ANY PAIN, C/P, OR S.O.B. DOBUTAMINE INFUSING WITHOUT DIFFICULTY TO RIGHT UPPER ARM 6FR PICC. NSR WITH PVC'S, BIPAP IN PLACE. LLQ COLOSTOMY INTACT. GENERALIZED EDEMA NOTED. ROSENBERG CATHETER TO BEDSIDE DRAINAGE. CALLBELL WITHIN REACH. ASSESSMENT COMPLETED, SEE FLOW SHEET
[2018-06-03] MEDS: FUROSEMIDE 10 MG/ML 4ML VIAL IV SCH ×2 (01:56→09:10)
[2018-06-03] MEDS: DOBUTAMINE 250MG/D5 250ML 250 ML IV PRN ×3 (01:57→18:00)
[2018-06-03] MEDS: IPRATROPIUM/ALBUTEROL SULFATE 3 ML SOLUTION IH SCH ×6 (02:30→22:20)
[2018-06-03 04:24] LABS: HEMATOCRIT 26.4 % (36-48); MEAN CORPUSCULAR HEMOGLOBIN 23.1 pg (27.0-33.0); MEAN CORPUSCULAR HGB CONC 30.4 g/dL (32.0-36.0); NUCLEATED RED BLOOD CELLS 0.2 % (0.0-0.19); PLATELET COUNT (AUTO) 81 K/uL (130-400); RED BLOOD CELL COUNT(AUTO) 3.48 MIL/uL (4.00-5.50); RED CELL DISTRIBUTION WIDTH 19.8 % (11.0-15.5); WHITE BLOOD COUNT (AUTO) 6.1 K/uL (4.8-10.8)
[2018-06-03 04:27] LABS: ABG BASE EXCESS 13.2 mmol/L (-2.0-3.0); ABG HCO3 39.6 mmol/L (21.0-28.0); ABG OXYGEN SATURATION 97.5 % (95.0-99.0); ABG PCO2 56 mmHg (32-45)
[2018-06-03 04:43] LABS: CREATININE 2.6 mg/dL (0.5-1.5); POTASSIUM 3.1 mmol/L (3.5-5.1)
[2018-06-03] MEDS: INSULIN R PO SS1 SQ SCH ×4 (06:57→21:07)
--- NOTE | 2018-06-03 07:38 | NUR ---
REPORT REPORT GIVEN TO BRENT CABAN
--- NOTE | 2018-06-03 07:38 | NUR ---
REPORT REPORT GIVEN TO BRENT CABAN.
[2018-06-03] MEDS: IRON SUCROSE COMPLEX 100 MG in SODIUM CHLORIDE 0.9% 50 ML IV SCH (09:10)
[2018-06-03] MEDS: THIAMINE HCL 100 MG/ML 2ML VIAL IVP SCH (09:10)
[2018-06-03] MEDS: ZOSYN 3.375GM+NS 50ML 50 ML IV SCH ×2 (09:11→20:55)
[2018-06-03] MEDS: METOLAZONE 2.5 MG TABLET PO SCH ×2 (09:11→20:56)
[2018-06-03] MEDS: ASPIRIN 81MG TAB.CHEW PO SCH (09:11)
[2018-06-03] MEDS: ISOSORBIDE MONO 30MG TAB SR PO SCH (09:12)
[2018-06-03] MEDS: CARVEDILOL 3.125 MG TABLET PO SCH ×2 (09:12→20:57)
[2018-06-03] MEDS: HYDRALAZINE HCL 10 MG TABLET PO SCH ×3 (09:13→20:56)
[2018-06-03] MEDS: ENOXAPARIN SODIUM 30 MG/0.3 ML SQ SCH (09:13)
[2018-06-03] MEDS ORDERED: LIDOCAINE HCL-MPF 1% 2ML VIAL IVP PRN (13:15)
[2018-06-03] MEDS ORDERED: POTASSIUM CHLORIDE 10MEQ/100ML 100 ML IV PRN (13:15)
[2018-06-03] MEDS: EPOETIN ALFA 10,000 UNIT/ML VIAL SQ SCH (13:55)
[2018-06-03] MEDS: POTASSIUM CHLORIDE 10% ELIXIR 20 MEQ/15 ML UDCUP PO PRN ×2 (17:10→22:05)
[2018-06-03] MEDS: FUROSEMIDE 100 MG in SODIUM CHLORIDE 0.9% 90 ML IV PRN (18:23)
--- NOTE | 2018-06-03 19:50 | NUR ---
ASSESSMENT NOTE AAOX3 SITTING UP IN BED BREATHING REGULAR AND UNLABORED ON NASAL CANNULA. ASSESSMENT COMPLETED. DENIES ACUTE PAIN. PLAN OF CARE DISCUSSED WITH PATIENT. DOBUTAMINE AND LASIX INFUSING TO EMANUEL PICC. FC WITH STRAW COLORED URINE. NO ACUTE SIGNS OR SYMPTOMS OF DISTRESS NOTED. REINFORCED SAFETY INSTRUCTION. CALL LIGHT IN REACH
[2018-06-03] MEDS: ATORVASTATIN CALCIUM 40 MG TABLET PO SCH (20:56)
[2018-06-03] MEDS: ACETAMINOPHEN 325 MG TAB PO PRN (22:04)
[2018-06-04] VITALS (24 sets, daily range): BP systolic 93–141; BP diastolic 38–79
[2018-06-04] MEDS: IPRATROPIUM/ALBUTEROL SULFATE 3 ML SOLUTION IH SCH ×6 (01:32→22:05)
[2018-06-04] MEDS: DOBUTAMINE 250MG/D5 250ML 250 ML IV PRN ×3 (01:46→16:46)
[2018-06-04] MEDS: FUROSEMIDE 100 MG in SODIUM CHLORIDE 0.9% 90 ML IV PRN ×4 (03:49→23:54)
[2018-06-04 03:51] LABS: HEMATOCRIT 25.4 % (36-48); MEAN CORPUSCULAR HEMOGLOBIN 23.4 pg (27.0-33.0); MEAN CORPUSCULAR HGB CONC 31.3 g/dL (32.0-36.0); MEAN CORPUSCULAR VOLUME 74.8 fL (79-99); NUCLEATED RED BLOOD CELLS 0.1 % (0.0-0.19); PLATELET COUNT (AUTO) 58 K/uL (130-400); RED BLOOD CELL COUNT(AUTO) 3.39 MIL/uL (4.00-5.50); RED CELL DISTRIBUTION WIDTH 19.5 % (11.0-15.5); WHITE BLOOD COUNT (AUTO) 5.4 K/uL (4.8-10.8)
[2018-06-04 04:14] LABS: ALBUMIN 2.1 g/dL (3.5-5.0); BILIRUBIN,TOTAL 0.9 mg/dL (0.2-1.0); CREATININE 2.4 mg/dL (0.5-1.5); MAGNESIUM 1.7 mg/dL (1.80-2.40); POTASSIUM 3.3 mmol/L (3.5-5.1); TOTAL PROTEIN, SERUM 5.7 g/dL (6.0-8.3)
[2018-06-04 05:11] LABS: ABG BASE EXCESS 12.9 mmol/L (-2.0-3.0); ABG HCO3 39.3 mmol/L (21.0-28.0); ABG PCO2 56 mmHg (32-45)
[2018-06-04] MEDS: POTASSIUM CHLORIDE 20 MEQ ERTAB PO PRN ×3 (06:45→14:46)
[2018-06-04] MEDS: INSULIN R PO SS1 SQ SCH ×4 (06:47→20:44)
[2018-06-04] MEDS ORDERED: MAGNESIUM 2GM PREMIX 50ML 50 ML IV PRN (07:45)
[2018-06-04] MEDS: METOLAZONE 2.5 MG TABLET PO SCH ×2 (09:29→20:37)
[2018-06-04] MEDS: CARVEDILOL 3.125 MG TABLET PO SCH ×2 (09:30→20:38)
[2018-06-04] MEDS: HYDRALAZINE HCL 10 MG TABLET PO SCH ×3 (09:30→20:37)
[2018-06-04] MEDS: ASPIRIN 81MG TAB.CHEW PO SCH (09:30)
[2018-06-04] MEDS: ISOSORBIDE MONO 30MG TAB SR PO SCH (09:31)
[2018-06-04] MEDS: IRON SUCROSE COMPLEX 100 MG in SODIUM CHLORIDE 0.9% 50 ML IV SCH (09:31)
[2018-06-04] MEDS: THIAMINE HCL 100 MG/ML 2ML VIAL IVP SCH (09:34)
[2018-06-04] MEDS: EPOETIN ALFA 10,000 UNIT/ML VIAL SQ SCH (12:23)
[2018-06-04 19:08] LABS: MAGNESIUM 2.2 mg/dL (1.80-2.40); POTASSIUM 3.4 mmol/L (3.5-5.1)
--- NOTE | 2018-06-04 19:50 | NUR ---
ASSESSMENT NOTE AAOX3 SITTING UP IN BED BREATHING REGULAR AND UNLABORED ON NASAL CANNULA. ASSESSMENT COMPLETED. DENIES ACUTE PAIN. PLAN OF CARE DISCUSSED WITH PATIENT. DOBUTAMINE AND LASIX INFUSING TO EMANUEL PICC. FC WITH STRAW COLORED URINE. REPOSITIONED TO COMFORT AND CUT EVENING MEAL INTO PIECES FOR PATIENT TO EAT. NO ACUTE SIGNS OR SYMPTOMS OF DISTRESS NOTED. REINFORCED SAFETY INSTRUCTION. CALL LIGHT IN REACH
[2018-06-04] MEDS: ATORVASTATIN CALCIUM 40 MG TABLET PO SCH (20:37)
[2018-06-04] MEDS: POTASSIUM CHLORIDE 10% ELIXIR 20 MEQ/15 ML UDCUP PO PRN (21:31)
[2018-06-05] VITALS (18 sets, daily range): BP systolic 108–146; BP diastolic 45–82
[2018-06-05] MEDS: DOBUTAMINE 250MG/D5 250ML 250 ML IV PRN ×3 (00:15→17:00)
[2018-06-05] MEDS: IPRATROPIUM/ALBUTEROL SULFATE 3 ML SOLUTION IH SCH ×6 (01:46→21:41)
[2018-06-05 03:54] LABS: HEMATOCRIT 25.7 % (36-48); MEAN CORPUSCULAR HEMOGLOBIN 23.3 pg (27.0-33.0); MEAN CORPUSCULAR HGB CONC 30.9 g/dL (32.0-36.0); MEAN CORPUSCULAR VOLUME 75.4 fL (79-99); NUCLEATED RED BLOOD CELLS 0.5 % (0.0-0.19); PLATELET COUNT (AUTO) 57 K/uL (130-400); RED CELL DISTRIBUTION WIDTH 19.5 % (11.0-15.5); WHITE BLOOD COUNT (AUTO) 5.4 K/uL (4.8-10.8)
[2018-06-05 04:06] LABS: CREATININE 2.2 mg/dL (0.5-1.5); POTASSIUM 3.1 mmol/L (3.5-5.1)
[2018-06-05 04:09] LABS: ABG BASE EXCESS 13.2 mmol/L (-2.0-3.0); ABG HCO3 40.3 mmol/L (21.0-28.0); ABG OXYGEN SATURATION 94.8 % (95.0-99.0); ABG PCO2 60 mmHg (32-45)
[2018-06-05] MEDS: POTASSIUM CHLORIDE 20 MEQ ERTAB PO PRN ×3 (05:24→13:25)
[2018-06-05] MEDS: FUROSEMIDE 100 MG in SODIUM CHLORIDE 0.9% 90 ML IV PRN ×3 (05:24→20:40)
[2018-06-05] MEDS: INSULIN R PO SS1 SQ SCH ×4 (06:37→20:46)
[2018-06-05] MEDS ORDERED: DOCUSATE SODIUM 100 MG CAP PO PRN (07:45)
[2018-06-05] MEDS: IRON SUCROSE COMPLEX 100 MG in SODIUM CHLORIDE 0.9% 50 ML IV SCH (08:03)
[2018-06-05] MEDS: THIAMINE HCL 100 MG/ML 2ML VIAL IVP SCH (08:06)
[2018-06-05] MEDS: METOLAZONE 2.5 MG TABLET PO SCH (08:07)
[2018-06-05] MEDS: ASPIRIN 81MG TAB.CHEW PO SCH (08:08)
[2018-06-05] MEDS: ISOSORBIDE MONO 30MG TAB SR PO SCH (08:08)
[2018-06-05] MEDS: CARVEDILOL 3.125 MG TABLET PO SCH (08:08)
[2018-06-05] MEDS: HYDRALAZINE HCL 10 MG TABLET PO SCH ×3 (08:19→20:40)
[2018-06-05] MEDS: EPOETIN ALFA 10,000 UNIT/ML VIAL SQ SCH (12:06)
[2018-06-05] MEDS: ATORVASTATIN CALCIUM 40 MG TABLET PO SCH (20:40)
[2018-06-06] VITALS (11 sets, daily range): BP systolic 101–160; BP diastolic 49–98
[2018-06-06] MEDS: DOBUTAMINE 250MG/D5 250ML 250 ML IV PRN ×4 (00:17→21:39)
[2018-06-06] MEDS: IPRATROPIUM/ALBUTEROL SULFATE 3 ML SOLUTION IH SCH ×6 (01:28→22:47)
[2018-06-06 03:50] LABS: HEMATOCRIT 25.4 % (36-48); MEAN CORPUSCULAR HEMOGLOBIN 23.2 pg (27.0-33.0); NUCLEATED RED BLOOD CELLS 0.3 % (0.0-0.19); PLATELET COUNT (AUTO) 67 K/uL (130-400); RED BLOOD CELL COUNT(AUTO) 3.39 MIL/uL (4.00-5.50); WHITE BLOOD COUNT (AUTO) 5.7 K/uL (4.8-10.8)
[2018-06-06 04:13] LABS: ALBUMIN 2.3 g/dL (3.5-5.0); BILIRUBIN,TOTAL 0.8 mg/dL (0.2-1.0); CREATININE 2.2 mg/dL (0.5-1.5); MAGNESIUM 2.1 mg/dL (1.80-2.40); PHOSPHORUS 3.2 mg/dL (2.5-4.9); POTASSIUM 3.3 mmol/L (3.5-5.1); TOTAL PROTEIN, SERUM 5.8 g/dL (6.0-8.3)
[2018-06-06 04:38] LABS: ABG BASE EXCESS 15.1 mmol/L (-2.0-3.0); ABG HCO3 42.3 mmol/L (21.0-28.0); ABG OXYGEN SATURATION 97.2 % (95.0-99.0); ABG PCO2 61 mmHg (32-45)
[2018-06-06] MEDS: INSULIN R PO SS1 SQ SCH ×4 (06:25→21:48)
[2018-06-06] MEDS: ASPIRIN 81MG TAB.CHEW PO SCH (09:08)
[2018-06-06] MEDS: METOLAZONE 2.5 MG TABLET PO SCH (09:08)
[2018-06-06] MEDS: ISOSORBIDE MONO 30MG TAB SR PO SCH (09:08)
[2018-06-06] MEDS: HYDRALAZINE HCL 10 MG TABLET PO SCH ×4 (09:09→21:40)
--- NOTE | 2018-06-06 09:15 | NUR ---
BIAPAP PT PLACED ON BIPAP. TOLERATING WELL. WILL CONTINUE TO MONITOR.
[2018-06-06] MEDS: THIAMINE HCL 100 MG/ML 2ML VIAL IVP SCH (09:16)
[2018-06-06] MEDS: IRON SUCROSE COMPLEX 100 MG in SODIUM CHLORIDE 0.9% 50 ML IV SCH (09:16)
--- NOTE | 2018-06-06 12:00 | NUR ---
O2 SUPPLEMENTATION BIPAP REMOVED. PT PLACED ON O2 NC @ 3L. PT TO HAVE LUNCH @ THIS TIME. FAMILY @ BEDSIDE.
--- NOTE | 2018-06-06 13:15 | NUR ---
RT THORACENTESIS @ 1305 RT THORACENTESIS PROCEDURE EXPLAINED TO TIANNA, SISTER RENATO MADDEN. QUESTIONS ENCOURAGED & CLARIFIED. AGREES FOR PT TO HAVE PROCEDURE DONE TODAY BY DR GUERRIER. CONSENT SIGNED. @ 1310 PT POSITIONED FOR PROCEDURE. O2 NC @ 3L. V/S PER WNL, REFER TO V/S SPREADSHEET. @ 1318 DR GUERRIER IN RM. @ 1320 PROCEDURE TIME OUT PERFORMED. @ 1321 RT THORACENTESIS STARTED BY DR GUERRIER. @ 1326 END OF RT THORACENTESIS. 900 ML OF PLEURAL FLUID DRAINED. @ 1328 MD OUT OF RM. PT TOLERATED PROCEDURE WELL. NO DISTRESS NOTED.
[2018-06-06 14:45] LABS: BF LYMPHOCYTE 5 %; BF MESOTHELIAL 5 %; BF MONOCYTE 5 %
[2018-06-06 14:48] LABS: APPEARANCE BODY FLUID CLOUDY (CLEAR); SPECIMENTYPE,BODY FLUID PLEURAL
[2018-06-06 14:49] LABS: COLOR,BODY FLUID ORANGE (LT YELLOW); TOTAL VOLUME,BODY FLUID 900 mL
[2018-06-06 14:54] LABS: BODY FLUID WBC 263 /cu. mm.
[2018-06-06 14:55] LABS: BODY FLUID RBC 6900 /cu. mm.
[2018-06-06] MEDS: FUROSEMIDE 100 MG in SODIUM CHLORIDE 0.9% 90 ML IV PRN (21:39)
[2018-06-06] MEDS: ATORVASTATIN CALCIUM 40 MG TABLET PO SCH (21:40)
[2018-06-06] MEDS: POTASSIUM CHLORIDE 20 MEQ ERTAB PO PRN (21:40)
[2018-06-07] MEDS: POTASSIUM CHLORIDE 20 MEQ ERTAB PO PRN (00:52)
[2018-06-07] MEDS: IPRATROPIUM/ALBUTEROL SULFATE 3 ML SOLUTION IH SCH ×6 (02:39→22:45)
[2018-06-07 03:50] VITALS: BP 122/71
[2018-06-07 04:57] LABS: ABG BASE EXCESS 17.2 mmol/L (-2.0-3.0); ABG HCO3 43.2 mmol/L (21.0-28.0); ABG OXYGEN SATURATION 97.9 % (95.0-99.0); ABG PCO2 55 mmHg (32-45)
[2018-06-07 05:11] LABS: ALBUMIN 2.4 g/dL (3.5-5.0); BILIRUBIN,TOTAL 0.7 mg/dL (0.2-1.0); CREATININE 2.3 mg/dL (0.5-1.5); PHOSPHORUS 3.3 mg/dL (2.5-4.9); POTASSIUM 3.5 mmol/L (3.5-5.1); TOTAL PROTEIN, SERUM 5.9 g/dL (6.0-8.3)
[2018-06-07] MEDS: INSULIN R PO SS1 SQ SCH ×4 (06:45→21:00)
[2018-06-07 07:22] VITALS: BP 123/70
[2018-06-07] MEDS: DOBUTAMINE 250MG/D5 250ML 250 ML IV PRN ×2 (07:23→23:40)
[2018-06-07 07:29] LABS: HEMATOCRIT 27.3 % (36-48); MEAN CORPUSCULAR HEMOGLOBIN 23.3 pg (27.0-33.0); MEAN CORPUSCULAR HGB CONC 31.5 g/dL (32.0-36.0); MEAN CORPUSCULAR VOLUME 74.1 fL (79-99); NUCLEATED RED BLOOD CELLS 0.1 % (0.0-0.19); PLATELET COUNT (AUTO) 80 K/uL (130-400); RED BLOOD CELL COUNT(AUTO) 3.68 MIL/uL (4.00-5.50); RED CELL DISTRIBUTION WIDTH 20.2 % (11.0-15.5)
[2018-06-07] MEDS: METOLAZONE 2.5 MG TABLET PO SCH (08:23)
[2018-06-07] MEDS: ASPIRIN 81MG TAB.CHEW PO SCH (08:24)
[2018-06-07] MEDS: ISOSORBIDE MONO 30MG TAB SR PO SCH (08:24)
[2018-06-07] MEDS: IRON SUCROSE COMPLEX 100 MG in SODIUM CHLORIDE 0.9% 50 ML IV SCH (08:25)
[2018-06-07] MEDS: HYDRALAZINE HCL 10 MG TABLET PO SCH ×3 (08:25→21:00)
[2018-06-07] MEDS: THIAMINE HCL 100 MG TABLET PO SCH (08:26)
[2018-06-07] MEDS: FUROSEMIDE 100 MG in SODIUM CHLORIDE 0.9% 90 ML IV PRN ×2 (09:34→21:29)
[2018-06-07 11:33] VITALS: BP 131/53
--- NOTE | 2018-06-07 14:50 | NUR ---
MD VISIT DR GUERRIER IN TO SEE PT. FAMILY @ BEDSIDE. PT'S PLAN OF CARE & STATUS REVIEWED BY MD. QUESTIONS ENCOURAGED & CLARIFIED. DNR STATUS DISCUSSED. RESUSCITATION STATUS CHANGED TO DNR.
--- NOTE | 2018-06-07 15:00 | NUR ---
DNR STATUS DNR FORM SIGNED BY SISTER, TIANNA DELGADO.
--- NOTE | 2018-06-07 15:10 | NUR ---
MD NOTIFICATION DR DE LUNA NOTIFIED OF DR'S DISCUSSION W/PT' FAMILY. UPDATED ON PT'S RESUSCITATION STATUS. HOSPICE CONSULT DISCUSSED W/FAMILY BY DR GUERRIER. PER DR CALIXTO PASTOR MAY BE CONSULTED IN AM FOR HOSPICE CARE.
[2018-06-07 16:13] VITALS: BP 145/50
[2018-06-07 19:46] VITALS: BP 111/58
[2018-06-07] MEDS: ATORVASTATIN CALCIUM 40 MG TABLET PO SCH (21:00)
[2018-06-07 23:31] VITALS: BP 118/55
[2018-06-08] MEDS: IPRATROPIUM/ALBUTEROL SULFATE 3 ML SOLUTION IH SCH ×4 (02:22→14:29)
[2018-06-08 03:27] VITALS: BP 125/96
[2018-06-08 04:32] LABS: ABG BASE EXCESS 17.5 mmol/L (-2.0-3.0); ABG HCO3 42.7 mmol/L (21.0-28.0); ABG OXYGEN SATURATION 97.1 % (95.0-99.0); ABG PCO2 50 mmHg (32-45)
[2018-06-08] MEDS: INSULIN R PO SS1 SQ SCH ×3 (06:42→15:47)
[2018-06-08] MEDS: DOBUTAMINE 250MG/D5 250ML 250 ML IV PRN ×2 (06:56→15:53)
[2018-06-08] MEDS: FUROSEMIDE 100 MG in SODIUM CHLORIDE 0.9% 90 ML IV PRN (06:56)
[2018-06-08 07:59] VITALS: BP 153/74
[2018-06-08] MEDS: THIAMINE HCL 100 MG TABLET PO SCH ×2 (09:00→09:52)
[2018-06-08] MEDS: ISOSORBIDE MONO 30MG TAB SR PO SCH ×2 (09:00→09:53)
[2018-06-08] MEDS: METOLAZONE 2.5 MG TABLET PO SCH ×2 (09:00→09:52)
[2018-06-08] MEDS: ASPIRIN 81MG TAB.CHEW PO SCH ×2 (09:00→09:52)
[2018-06-08] MEDS: HYDRALAZINE HCL 10 MG TABLET PO SCH ×3 (09:00→14:00)
[2018-06-08] MEDS: IRON SUCROSE COMPLEX 100 MG in SODIUM CHLORIDE 0.9% 50 ML IV SCH (09:53)
--- NOTE | 2018-06-08 10:00 | NUR ---
HOSPICE Sw met with pt's sister and discussed dcp with hospice. Sister requesting pt stay in hospital with hospice. Sw educated on inpt hospice criteria and sister is wanting GIP eval completed before agreeing to home. SW educated on [facility] and sister is stating that was her choice of agencies. TED spoke to Nidhi WAKEFIELD regarding family request and need for order. Dr Dupree would not agree to referral to [facility], he wants referral made to [facility]. SW spoke to sister and informed of this, informed sister that [facility] will have to submit one time contract for approval before eval can be done, sister agreeable, states she believes sister will pass before all is completed. Sw provided emotional support. TED spoke to Radha at [facility]. Radha spoke to Nidhi and they will try and coordinate 1 time contract.
--- NOTE | 2018-06-08 10:04 | NUR ---
Patient is very lethargic and unable to take PO medications. Patient is being evaluated for Hospice.
[2018-06-08 11:47] VITALS: BP 105/43
--- NOTE | 2018-06-08 14:00 | NUR ---
Nutrition F/u: At time of RD visit, pt with multiple family members at bedside. Pt's sister provided nutritional feedback. Sister reports troubled chewing and swallowing. Requesting Puree textures. Sister states she was advised to provide water for pt with sponge. Pt in DNR status, as per pt's RN-pending hospice. Recommendations: Speech therapy bedside evaluation for appropriate texture placement. RD to modify diet therapy to puree as per pt's sister's request. RD to continue monitoring pt's nutritional status for continued intervention. Addendum: 06/08/18 at [address] Amended: Links added.
--- NOTE | 2018-06-08 14:30 | NUR ---
[facility] CMD, Nidhi sanchez 1 time contact from [facility] and contract is pending approval from [employer]NA[employer]. [facility] rep has been here and met with family, paperwork completed. Hospice admission pending approval and admit by [facility] nurse. Pt sister updated, sister reports pt is comfortable at this time, denies pt is in pain. Family and co workers at bedside saying good bye to pt.
[2018-06-08 15:34] VITALS: BP 128/60
[2018-06-08 15:53] VITALS: BP 128/60
--- NOTE | 2018-06-08 18:11 | NUR ---
patient was admitted to hospice
[2018-06-10] MEDS ORDERED: EPOETIN ALFA 10,000 UNIT/ML VIAL SQ SCH (09:00)
== END 2018-06-08 16:14 | disposition hospice, inpatient (51) | DRG 291 ==
LOC: EDH 20:08 → EDHIP 05-31 00:16 → 2CH 05-31 01:26 → 2BH 06-05 14:41 → 2DH 06-05 15:13
PROVIDERS: ADMIT Family Medicine; ATTEND Family Medicine
PROC: 0W9B30Z Drainage of Left Pleural Cavity with Drainage Device, Percutaneous Approach (ICD-10-PCS; 2018-05-31)
PROC: 02HV33Z Insertion of Infusion Device into Superior Vena Cava, Percutaneous Approach (ICD-10-PCS; 2018-06-02)
PROC: 5A09357 Assistance with Respiratory Ventilation, Less than 24 Consecutive Hours, Continuous Positive Airway Pressure (ICD-10-PCS; principal; 2018-06-04)
PROC: 5A09357 Assistance with Respiratory Ventilation, Less than 24 Consecutive Hours, Continuous Positive Airway Pressure (ICD-10-PCS; 2018-06-05)
PROC: 0W993ZZ Drainage of Right Pleural Cavity, Percutaneous Approach (ICD-10-PCS; 2018-06-06)
DX: I13.0 Hypertensive heart and chronic kidney disease with heart failure and stage 1 through stage 4 chronic kidney disease, or unspecified chronic kidney disease (principal); I50.23 Acute on chronic systolic (congestive) heart failure; G93.41 Metabolic encephalopathy; J96.21 Acute and chronic respiratory failure with hypoxia; J96.22 Acute and chronic respiratory failure with hypercapnia; J44.1 Chronic obstructive pulmonary disease with (acute) exacerbation; N18.4 Chronic kidney disease, stage 4 (severe); N17.9 Acute kidney failure, unspecified; J44.0 Chronic obstructive pulmonary disease with (acute) lower respiratory infection; E87.1 Hypo-osmolality and hyponatremia; E87.2 Acidosis; J91.8 Pleural effusion in other conditions classified elsewhere; Z86.718 Personal history of other venous thrombosis and embolism; I25.5 Ischemic cardiomyopathy; I25.10 Atherosclerotic heart disease of native coronary artery without angina pectoris; D63.8 Anemia in other chronic diseases classified elsewhere; D69.6 Thrombocytopenia, unspecified; E11.21 Type 2 diabetes mellitus with diabetic nephropathy; E11.22 Type 2 diabetes mellitus with diabetic chronic kidney disease; E66.01 Morbid (severe) obesity due to excess calories; Z68.37 Body mass index [BMI] 37.0-37.9, adult; E78.5 Hyperlipidemia, unspecified; G47.33 Obstructive sleep apnea (adult) (pediatric); Z51.5 Encounter for palliative care; Z74.01 Bed confinement status; Z79.01 Long term (current) use of anticoagulants; Z79.82 Long term (current) use of aspirin; Z79.899 Other long term (current) drug therapy; Z85.42 Personal history of malignant neoplasm of other parts of uterus; Z90.710 Acquired absence of both cervix and uterus; Z91.19 Patient's noncompliance with other medical treatment and regimen; Z93.3 Colostomy status; Z95.1 Presence of aortocoronary bypass graft; Z99.3 Dependence on wheelchair
CPT/HCPCS: 32551; 36415; 36600; 71045; 71250; 76770; 80048; 80053; 81001; 82550; 82728; 82803; 82945; 82948; 83540; 83550; 83605; 83615; 83735; 83874; 83880; 83986; 84100; 84132; 84145; 84157; 84443; 84484; 84550; 85025; 85027; 85610; 85730; 87040; 87071; 87088; 87116; 87205; 87206; 88108; 88305; 89051; 93005; 93970; 94640; 94660; 94664; 97039; 99291; A5061; A7048; C1729; C1751; C1894; G0378; J0885; J1200; J1250; J1650; J1756; J1815; J1940; J2543; J3370; J3411; J3475; J7030

== ENCOUNTER 2018-06-08 16:15 | Inpatient (IN) | payer OTHER, MEDICARE | END 2018-06-12 14:18 | disposition hospice, home (50) | LOC: 2DH 16:15 → 4CH 06-09 11:51 | DX: J96.90 Respiratory failure, unspecified, unspecified whether with hypoxia or hypercapnia (principal); I13.0 Hypertensive heart and chronic kidney disease with heart failure and stage 1 through stage 4 chronic kidney disease, or unspecified chronic kidney disease; J44.1 Chronic obstructive pulmonary disease with (acute) exacerbation; J44.0 Chronic obstructive pulmonary disease with (acute) lower respiratory infection; I50.84 End stage heart failure; I50.9 Heart failure, unspecified ==